=== PATIENT | male | born 1970 | race Caucasian/White ===

== ENCOUNTER → 2019-04-23 | Outpatient (CLI) | payer BC | END | disposition home or self-care (01) | LOC: LAB SHORT 18:08 → LAB 18:08 | DX: L08.9 Local infection of the skin and subcutaneous tissue, unspecified (principal) | CPT/HCPCS: 87070; 87077; 87147; 87186; 87205 ==

== ENCOUNTER 2023-04-08 08:27 | Emergency (ER) | payer OTHER, BC ==
[~2023-04-08] VITALS: Ht 182.9 cm; Wt 95.2 kg
[2023-04-08 08:53] VITALS: BP 132/100
== END 2023-04-08 09:30 | disposition home or self-care (01) ==
LOC: ER 08:27
DX: S63.601A Unspecified sprain of right thumb, initial encounter (principal); W22.8XXA Striking against or struck by other objects, initial encounter
CPT/HCPCS: 73140; 99283-25